=== PATIENT | male | born 1995 | race Caucasian/White ===

== ENCOUNTER 2024-01-21 19:45 | Emergency (ER) | payer SELFPAY ==
[2024-01-21 19:58] VITALS: BP 145/96; PULSE 90; TEMP 37; O2SAT 99; BMI 34.9
--- NOTE | 2024-01-21 21:55 | ED.LOWEXI1 ---
HPI HPI - Extremity Injury (Lower) General Chief Complaint: Extremity Problem, Nontraumatic Stated Complaint: LOWER LEFT EXTREMITY PAIN Source: patient Mode of arrival: walk-in Limitations: no limitations Related Data Allergies Allergy/AdvReac Type Severity Reaction Status Date / Time No Known Drug Allergies Allergy Verified 01/21/24 19:58 Opioid HPI Opioid Management Most Recent Pain and Opioid Data: Last Pain Scale 8 01/21/24 20:37 Last ED Pain Assessment 01/21/24 20:37 Exam Constitutional Vital Signs, click to edit/add: Last Vital Signs Temp 98.6 F 01/21/24 19:58 Pulse 90 01/21/24 19:58 Resp 18 01/21/24 19:58 BP 145/96 H 01/21/24 19:58 Pulse Ox 99 01/21/24 19:58 O2 Del Method Room Air 01/21/24 19:58 Course Vital Signs Vital signs: Vital Signs Temperature 98.6 F 01/21/24 19:58 Pulse Rate 90 01/21/24 19:58 Respiratory Rate 18 01/21/24 19:58 Blood Pressure 145/96 H 01/21/24 19:58 Pulse Oximetry 99 01/21/24 19:58 Oxygen Delivery Method Room Air 01/21/24 19:58 Temperature 98.6 F 01/21/24 19:58 Pulse Rate 90 01/21/24 19:58 Respiratory Rate 18 01/21/24 19:58 Blood Pressure 145/96 H 01/21/24 19:58 Pulse Oximetry 99 01/21/24 19:58 Oxygen Delivery Method Room Air 01/21/24 19:58 MDM - Extremity Injury (Lower) MDM Narrative Medical decision making narrative: Patient eloped prior to being seen. Discharge Plan Discharge Patient Disposition: Left Without Being Seen Discharge Date/Time: 01/21/24 21:48
== END 2024-01-21 21:48 | disposition left against medical advice (07) ==
PROVIDERS: Emergency Provider Student in an Organized Health Care Education/Training Program
DX: Z53.21 Procedure and treatment not carried out due to patient leaving prior to being seen by health care provider (principal)